=== PATIENT | female | born 1985 | race Caucasian/White ===

== ENCOUNTER → 2018-08-05 | Outpatient (CLI) | payer BC ==
--- NOTE | 2018-08-05 09:48 | MR ---
EXAMINATION TYPE: MR brain wo/w con DATE OF EXAM: 08/05/2018 COMPARISON: None HISTORY: Headache TECHNIQUE: Multiplanar, multisequence images of the brain and brainstem is performed without and with IV contras t, utilizing 7 mL intravenous Gadavist . FINDINGS: Diffusion weighted images demonstrate no evidence of a recent infarct or other diffusion ab normality. The ventricular system and cisternal spaces are normal in size and appearance. The brain volume is age appropriate. Midline structures demonstrate normal morphology. Cerebellar tonsils are low-lying in position approx imately 1 to 2 mm below the foramen magnum. Post contrast images demonstrate no abnormal enhancement. The dural venous sinuses appear patent. There is a trace amount of fluid surrounding the optic nerves bilaterally which can occasionally be a ssociated with papilledema correlate clinically. Changes of mild chronic sinusitis noted. White matter: There are approximately 5 less than 5 mm scattered foci of abnormal signal within the white matter pr edominantly in the frontal lobe and right parietal lobe bilaterally. No lesions perpendicular to vent ricular system. No enhancing lesions. IMPRESSION: 1. Cerebellar tonsils low-lying in position measuring approximately 1 to 2 mm below the foramen magnu m. No tonsillar beaking. 2. A trace amount of fluid surrounding the optic nerves is a nonspecific finding. Can occasionally be seen with papilledema correlate clinically. 3. Minimal nonspecific white matter changes can be seen with migraine headaches. Hypertension, remote microvascular ischemia or demyelinating process not entirely excluded correlate clinically.
== END | disposition home or self-care (01) ==
LOC: RADMRIMAIN 08:39
PROVIDERS: ATTEND Psychiatry & Neurology Neurology
DX: H47.10 Unspecified papilledema (principal); R90.89 Other abnormal findings on diagnostic imaging of central nervous system
CPT/HCPCS: 70553; A9585